=== PATIENT | female | born 1930 | race Hispanic/Latino ===

== ENCOUNTER 2018-12-05 08:41 | Inpatient (IN) | payer OTHER, MEDICARE | END 2019-01-03 12:15 | LOC: EDH 08:41 → 2AH 12-26 19:24 → 2BH 12-25 14:21 → EDHIP 10:52 → 3DH 11:46 | PROC: 0YQ50ZZ Repair Right Inguinal Region, Open Approach (ICD-10-PCS; principal; 2018-12-06 16:55) | PROC: 0DT80ZZ Resection of Small Intestine, Open Approach (ICD-10-PCS; 2018-12-06 16:55) | PROC: 0DN84ZZ Release Small Intestine, Percutaneous Endoscopic Approach (ICD-10-PCS; 2018-12-06 16:55) | DX: T81.41XA Infection following a procedure, superficial incisional surgical site, initial encounter (principal); A41.81 Sepsis due to Enterococcus; E43 Unspecified severe protein-calorie malnutrition; K85.90 Acute pancreatitis without necrosis or infection, unspecified; K65.9 Peritonitis, unspecified; K65.1 Peritoneal abscess; J96.90 Respiratory failure, unspecified, unspecified whether with hypoxia or hypercapnia; K40.30 Unilateral inguinal hernia, with obstruction, without gangrene, not specified as recurrent; K29.70 Gastritis, unspecified, without bleeding; E87.8 Other disorders of electrolyte and fluid balance, not elsewhere classified; D64.9 Anemia, unspecified; R53.81 Other malaise; R62.7 Adult failure to thrive ==

== ENCOUNTER 2019-01-13 08:16 | Day surgery (SDC) | payer OTHER, MEDICARE ==
[2019-01-13] VITALS (15 sets, daily range): BP systolic 121–165; BP diastolic 54–84
[~2019-01-13 08:16] MED LIST: CEFU250T87 PO; DICY10CA13 PO; PANT40TA25 PO
[2019-01-13 09:15] LABS: INR 1.04 (0.85-1.15); PARTIAL THROMBOPLASTIN TIME 30.8 SEC (26.3-35.5); PROTHROMBIN TIME 10.9 SEC (9.6-11.6)
[2019-01-13] MEDS ORDERED: SODIUM CHLORIDE 0.9% 1000ML 1,000 ML IV ONE (10:53)
[2019-01-13] MEDS ORDERED: LIDOCAINE HCL 1% 20 ML VIAL ONE (13:05)
[2019-01-13] MEDS ORDERED: SODIUM BICARB 50MEQ 50ML VIAL ONE (13:05)
[2019-01-13] MEDS ORDERED: MIDAZOLAM HCL 1 MG/ML 2ML VIAL ONE (13:06)
[2019-01-13] MEDS ORDERED: FENTANYL CITRATE PF 50 MCG/1 ML 2ML VIAL ONE (13:06)
[2019-01-13] MEDS ORDERED: IODIXANOL 320 MG/ML 100 ML VIAL ONE (13:36)
[2019-01-13] MEDS ORDERED: GLYCOPYRROLATE 1 MG/5 ML SYRINGE ONE (13:52)
[2019-01-13] MEDS ORDERED: LIDOCAINE PF 2% 5ML ABBOJECT ONE ×2 (13:52→13:54)
[2019-01-13] MEDS ORDERED: DEXAMETHASONE SOD PHOSPHATE 10MG/ML 1ML VIAL ONE (13:52)
[2019-01-13] MEDS ORDERED: SUCCINYLCHOLINE 200MG/10ML SYR ONE (13:52)
[2019-01-13] MEDS ORDERED: NEOSTIGMINE 5MG/5ML SYR IV ONE (13:52)
[2019-01-13] MEDS ORDERED: ONDANSETRON HCL 4 MG/2 ML VIAL ONE (13:52)
[2019-01-13] MEDS ORDERED: ROCURONIUM 10MG/1ML SYR 10 MG/ML ML ONE (13:52)
[2019-01-13] MEDS ORDERED: PROPOFOL 10 MG/ML 20ML VIAL IV ONE (13:52)
[2019-01-13] MEDS ORDERED: ATROPINE SULFATE 0.1 MG/ML 10 ML SYG IVP ONE (13:54)
--- NOTE | 2019-01-13 15:14 | NUR ---
report to nahid mayes lvn. will send information packet with pt.
--- NOTE | 2019-01-13 15:30 | NUR ---
post op received pt from PACU, S/P nephrostomy tube exchange to right lower back . dressing to site dry and intact, draining clear yellow urine. percutaneous drain to right front area of abdomen intact , pt arrived awake and alert, anxious to go back to intermediate. family at bedside. will continue to monitor
--- NOTE | 2019-01-13 16:25 | NUR ---
dc pt dc to [facility] via [facility] with [facility] staff. pt awake and alert, accompanied by family. nephrostomy tube in place and percuteneous drain in place. with dressing to site dry and intact.
== END 2019-01-13 16:25 ==
LOC: DAH 08:16
PROVIDERS: ATTEND Internal Medicine
DX: T83.89XA Other specified complication of genitourinary prosthetic devices, implants and grafts, initial encounter (principal); Y83.8 Other surgical procedures as the cause of abnormal reaction of the patient, or of later complication, without mention of misadventure at the time of the procedure; Y92.89 Other specified places as the place of occurrence of the external cause; I13.0 Hypertensive heart and chronic kidney disease with heart failure and stage 1 through stage 4 chronic kidney disease, or unspecified chronic kidney disease; I50.9 Heart failure, unspecified; N18.9 Chronic kidney disease, unspecified; Z79.899 Other long term (current) drug therapy
CPT/HCPCS: 36415; 36569; 50435; 71045; 85610; 85730; A4606; C1729; C1769; C1894; J0330; J0461; J1100; J1644; J2001 ×2; J2405; J2704; J2710; J3490 ×2; J7030; Q9967; J2250; J3010

== ENCOUNTER 2019-01-22 07:24 | Day surgery (SDC) | payer OTHER, MEDICARE ==
--- NOTE | 2019-01-22 12:04 | NUR ---
UNSUCCESSFUL PICC X2 ATTEMPTED TO PLACE T BOTH [place] AND [place] BOTH SITE ACCESSED USING [employer]PS NAVIGATION SYSTEM. ABLE TO PLACE NEEDLE AND GUIDE WIRE ON BOTH. ABLE TO INSERT CATHETER UP TO 25CM TO LEFT UPPER ARM AND THEN IT WOULD NOT PASS TO PLACE FULL CATHETER. ATTEMPTED TO PLACE TO RIGHT UPPER ARM UP TO 20CM, BUT WOULD NOT ADVANCE TO PLACE.PT NONE COOPERATIVE DURING PLACEMENT WOULD NOT FOLLOW COMMAND. STOPPED PROCEDURE, GAVE REPORT TO DIANNE YADAV RN ATTENDING NURSE. SPOKE TO PT FAMILY AND EXPLAINED PICC NOT BEING PLACE. DR. Jet LIND NOTIFIED BY DIANNE YADAV RN.
--- NOTE | 2019-01-22 12:45 | NUR ---
report to nurse more.
== END 2019-01-22 13:00 | disposition home or self-care (01) ==
LOC: DAHIP 07:24 → DAH 07:24
PROVIDERS: ATTEND Internal Medicine
DX: Z45.2 Encounter for adjustment and management of vascular access device (principal); N13.9 Obstructive and reflux uropathy, unspecified; I10 Essential (primary) hypertension
CPT/HCPCS: A4606; C1894; G0378